=== PATIENT | male | born 1945 | race Caucasian/White ===

== ENCOUNTER 2016-07-23 15:41 | Day surgery (SDC) | payer MEDICARE ==
[2016-07-23 17:16] LABS: BASOPHILS 0.2 % (0.0-2.0); EOSINOPHILS 1.9 % (0-7); HEMATOCRIT 43.4 % (42.0-54.0); HEMOGLOBIN 14.9 g/dL (13.5-17.5); IMMATURE GRANULOCYTES 0.2 % (0-5); LYMPHOCYTES 22.3 % (15-50); MCH 31.9 pg (26.0-34.0); MCHC 34.3 g/dL (31.0-37.0); MCV 92.9 fL (80.0-100.0); MEAN PLATELET VOLUME 10.2 fL (7.4-10.4); MONOCYTES 9.1 % (2-11); NEUTROPHILS 66.3 % (40-80); PLATELET COUNT 165 10x3/uL (130-400); RBC 4.67 10x6/uL (4.20-6.10); RDW 13.6 % (11.5-14.5); WBC 5.9 10x3/uL (4.8-10.8)
[2016-07-23 17:28] LABS: ANION GAP 14.6 mmol/L (8-16); CARBON DIOXIDE 28.5 mmol/L (21.0-32.0); CREATININE - SERUM 1.2 mg/dL (0.6-1.3); POTASSIUM - SERUM 4.1 mmol/L (3.5-5.1)
[2016-07-23] MEDS ORDERED: HYDROCODONE-APA1 TAB PO (18:41)
[2016-07-23 19:10] VITALS: BP 155/92
--- NOTE | 2016-07-23 20:00 | NUR ---
PATIENT RECEIVED TO ROOM FROM RECOVERY VIA STRETCHER WITH AND HOSPITAL STAFF. AAOX4. RR EVEN AND UNLABORED. DENIES PAIN AT THIS TIME. SLING AND ICE TO LEFT ARM.
--- NOTE | 2016-07-23 21:30 | NUR ---
PATIENT HAS HELD DOWN CRACKERS AND WATER. VOIDED 400 ML. D/C INSTRUCTIONS AND PRESCRIPTION GIVEN. ALL VITALS WNL. TAKEN DOWN IN WHEELCHAIR BY [employer] PROJECT MANAGER.
--- NOTE | 2016-08-07 11:39 | OP ---
PATIENT NAME: KIRILL JO MEDICAL RECORD: [id number] :45 LOCATION:D[facility] ADMISSION DATE: SURGEON: AL FERRARA MD DATE OF OPERATION: 07/23/2016 Orthopedic Surgery Operative Note PREOPERATIVE DIAGNOSIS: Distal fingertip amputation of the left long finger. POSTOPERATIVE DIAGNOSIS: Distal fingertip amputation of the left long finger. PROCEDURE: Debridement of the fingertip with full thickness skin graft to the left long finger using skin just proximal to the palmar wrist crease. INDICATIONS: Mr. Jo was evidently running his cattle through the chute and one of the back-stop bars that he used pinched the tip of his finger off. OPERATIVE SUMMARY IN DETAIL: After obtaining the appropriate preoperative orthopedic surgery consent as well as anesthetic consultation, evaluation and clearance, the patient was brought to the operating room and placed on the operating table in supine position. After adequate general laryngeal mask airway was administered, tourniquet was placed about the proximal aspect of the left upper extremity. Left upper extremity was then prepped and draped in routine sterile fashion. The arm was elevated and exsanguinated, tourniquet inflated to 350 mmHg. The distal tamp was gently cleansed and all debris was removed from it. A small amount of the distal fingertip had to be excised. The finger dome bed was left in place. Elliptical full thickness skin graft was taken from the wrist. Care was taken not to involve any hair. This was then gently sewn onto the left long fingertip using 4-0 Prolene, multiple sutures were used. Having completed this, tourniquet was deflated. Sterile dressings were applied. The patient was awakened, taken to recovery in stable condition. All final needle and sponge counts were correct. TRANSINT:[id number] Voice Confirmation ID: [id number] DOCUMENT ID: [id number] AL FERRARA MD at 1139 CC: [id number] DICTATION DATE: 08/06/162044 PLATE GRAINER: 08/07/16 0246 [facility] 07/23/16 [facility] [address] [id number]
== END 2016-07-23 22:04 | disposition home or self-care (01) ==
LOC: D.OPS 15:41 → D.ER 15:41 → EDSTATUS 17:51 → D.MS 18:33 → D.OPS 22:04
PROVIDERS: Anesthesiology
DX: S62.665A Nondisplaced fracture of distal phalanx of left ring finger, initial encounter for closed fracture (principal); S62.633A Displaced fracture of distal phalanx of left middle finger, initial encounter for closed fracture; W55.22XA Struck by cow, initial encounter; Z01.812 Encounter for preprocedural laboratory examination

== ENCOUNTER → 2020-07-10 08:08 | Outpatient (CLI) | payer MEDICARE, OTHER ==
[~2020-07-10 08:08] MED LIST: HYDROCODONE-APA1 TAB PO
== END | disposition home or self-care (01) ==
LOC: D.HCCECHO 08:08
PROVIDERS: ATTEND Internal Medicine Cardiovascular Disease
DX: R00.2 Palpitations (principal)